=== PATIENT | female | born 1980 | race Caucasian/White ===

== ENCOUNTER 2016-12-13 17:46 | Emergency (ER) | payer OTHER ==
[~2016-12-13] VITALS: Wt 87.1 kg
[~2016-12-13 17:46] MED LIST: AMOXICILLIN500 MG PO; AURALGAN 14 ML14 ML OT; CIPROFLOXACIN500 MG PO; CORTISPORIN SUS10 ML OT; MOTRIN600 MG PO; MOTRIN800 MG PO; OMNICEF300 MG PO; TRAMADOL HCL50 MG PO; ZYRTEC10 MG PO
[2016-12-13] MEDS ORDERED: LISINOPRIL AND1 TAB PO (17:56)
== END 2016-12-13 19:38 | disposition home or self-care (01) ==
LOC: ED 17:46
DX: S93.402A Sprain of unspecified ligament of left ankle, initial encounter (principal); Z79.899 Other long term (current) drug therapy; X58.XXXA Exposure to other specified factors, initial encounter; Y93.89 Activity, other specified; Y92.9 Unspecified place or not applicable; Y99.9 Unspecified external cause status

== ENCOUNTER → 2022-05-22 | Outpatient (CLI) | payer OTHER ==
[~2022-05-22] MED LIST changes: +LISINOPRIL AND1 TAB PO
== END | disposition home or self-care (01) ==
LOC: US 00:10
PROVIDERS: ATTEND Internal Medicine Nephrology
DX: K76.0 Fatty (change of) liver, not elsewhere classified (principal); K80.20 Calculus of gallbladder without cholecystitis without obstruction; R74.8 Abnormal levels of other serum enzymes

== ENCOUNTER → 2022-07-31 | Day surgery (SDC) | payer OTHER ==
[2022-07-28 14:56] VITALS: BP 128/72
[2022-07-31] VITALS (7 sets, daily range): BP systolic 104–142; BP diastolic 51–81
[~2022-07-31] VITALS: Ht 152.4 cm; Wt 86.2 kg
[~2022-07-31] MED LIST changes: +ASPIRIN81 M1 PO; +BLACK ELDERBER1 EACH PO; +COLACE100 MG PO; +GLYBURIDE5 MG PO; +JARDIANCE25 MG PO; +LOPRESSOR50 M1 PO; +METFORMIN HYD1000 MG PO; +ONDANSETRON HYDR4 M1 PO; +PERCOCET 5-3251 EACH PO; +SINGULAIR10 M1 PO; +VITAMIN B121000 MC1 PO; +VITAMIN C500 M4 PO; +VITAMIN D-40010 MCG PO; +VITAMIN E400 UNIT PO
== END | disposition home or self-care (01) ==
LOC: SDC 07-28 14:00
PROVIDERS: ATTEND Surgery
DX: K80.10 Calculus of gallbladder with chronic cholecystitis without obstruction (principal); I10 Essential (primary) hypertension; E11.9 Type 2 diabetes mellitus without complications; Z79.899 Other long term (current) drug therapy

== ENCOUNTER → 2022-12-22 | Outpatient (CLI) | payer OTHER | END | disposition home or self-care (01) | LOC: MAMMO 12:39 | PROVIDERS: ATTEND Internal Medicine Nephrology | DX: Z12.31 Encounter for screening mammogram for malignant neoplasm of breast (principal) ==